=== PATIENT | female | born 1975 | race Two or more races ===

== ENCOUNTER 2016-07-27 12:11 | Inpatient (IN) | payer SELFPAY ==
[~2016-07-27] VITALS: Ht 152.4 cm; Wt 103.0 kg
[2016-07-27] MEDS ORDERED: ALBUTEROL SULF 2.5 MG/0.5ML(0.5%) NEB SOLN HHN STA (13:18)
[2016-07-27] MEDS ORDERED: ACETAMINOPHEN 325 MG TAB PO ONE ×2 (13:20→13:30)
[2016-07-27 13:25] LABS: Basophils # (auto) 0 uL; Basophils % (auto) 0.3 % (0.0-2.0); DEFINITIVE VIEW TRANSMISSION; Eosinophils # (auto) 0 uL; Eosinophils % (auto) 0.1 % (0.0-7.0); Hematocrit 46.5 % (36.0-46.0); Hemoglobin 14.9 g/dL (12.2-16.2); Lymphocytes # (auto) 0.9 uL; Lymphocytes % (auto) 13.7 % (10.0-50.0); Mean Corpuscular Hemoglobin 24.4 pg (28.0-32.0); Mean Corpuscular Volume 76.1 fL (80.0-100.0); Monocytes # (auto) 0.8 uL; Monocytes % (auto) 11.7 % (0.0-12.0); Neutrophils # (auto) 4.8 uL; Neutrophils % (auto) 74.2 % (37.0-80.0); Platelet Count (auto) 293 10^3/uL (140-450); Red Cell Distribution Width 18.5 % (11.6-16.0); White Blood Cell 6.4 10^3/uL (4.4-10.8)
[2016-07-27] MEDS ORDERED: LEVOFLOXACIN 500MG 100 ML IV ONE (13:30)
[2016-07-27] MEDS ORDERED: IPRATROPIUM BROM 0.5 MG/2.5ML INH SOL NEB ONE (13:30)
[2016-07-27] MEDS ORDERED: methylPREDNISolone SOD SUCC 125 MG/2 ML VL IV ONE (13:30)
[2016-07-27 13:50] LABS: Albumin 2.8 g/dL (3.4-5.0); BUN/Creatinine Ratio 13.8; Bilirubin, Total 0.7 mg/dL (0.2-1.0); Calcium 8.2 mg/dL (8.5-10.1); Total Protein 8.1 g/dL (6.4-8.2)
[2016-07-27 13:59] LABS: Potassium 2.8 mmol/L (3.5-5.1)
[2016-07-27 14:04] LABS: Magnesium 2.2 mg/dL (1.6-2.6)
[2016-07-27] MEDS ORDERED: LACTULOSE 20Gm/30ML SOLN PO PRN (14:15)
[2016-07-27] MEDS ORDERED: ALBUTEROL SULF 2.5 MG/0.5ML(0.5%) NEB SOLN NEB PRN (14:15)
[2016-07-27] MEDS ORDERED: NITROGLYCERIN 0.4 MG SL TAB SL PRN (14:15)
[2016-07-27] MEDS ORDERED: HYDROcodone-ACET 5/325MG TAB PO PRN (14:15)
[2016-07-27] MEDS ORDERED: PROCHLORPERAZINE EDISYLATE 5 MG/ML 2ML VIAL IV PRN (14:15)
[2016-07-27] MEDS ORDERED: LORazepam 0.5 MG TAB PO PRN (14:15)
[2016-07-27] MEDS ORDERED: TEMAZEPAM 15 MG CAP PO PRN (14:15)
[2016-07-27] MEDS ORDERED: MORPHINE SULF INJ 2 MG/ML SYRINGE 1ML IV PRN ×2 (14:15)
[2016-07-27] MEDS ORDERED: ACETAMINOPHEN 500 MG TAB PO PRN (14:15)
[2016-07-27 14:20] LABS: B-Type Natriuretic Peptide 852.12 pg/mL (0-100); Temperature: 22.4 C (20.0-25.0)
[2016-07-27] MEDS ORDERED: FUROSEMIDE 40 MG/4 ML VIAL IV ONE (14:30)
[2016-07-27] MEDS ORDERED: POTASSIUM CHL 20MEQ/100ML 100 ML IV ONE (14:30)
[2016-07-27] MEDS ORDERED: POTASSIUM CHL 20 Meq TABLET PO ONE ×2 (14:30→14:45)
[2016-07-27] MEDS ORDERED: ENOXAPARIN SOD 40 MG/0.4 ML SYRINGE SC ONE (14:32)
[2016-07-27] MEDS ORDERED: AZITHROMYCIN 500MG/D5W 250ML 250 ML IV ONE (14:45)
[2016-07-27] MEDS ORDERED: ASPirin 81 mg TAB PO ONE (14:45)
[2016-07-27] MEDS ORDERED: cefTRIAXone 1GM/50ML D5W 50 ML IV ONE (14:45)
[2016-07-27] MEDS ORDERED: ENALAPRIL MALEATE 2.5 MG TAB PO ONE (14:45)
[2016-07-27] MEDS ORDERED: ENALAPRILAT 1.25 MG/ML-1ML VIAL IV PRN (14:45)
[2016-07-27 17:26] LABS: Urine Bilirubin Negative (Negative); Urine Color Yellow (Yellow); Urine Glucose Normal (Normal); Urine Ketone Negative (Negative); Urine Nitrite Negative (Negative); Urine RBC 286 /hpf (0 - 4); Urine Squamous Epithelial Cell FEW /hpf (<5); Urine Urobilinogen Normal (Negative); Urine pH 6.5 (5.0-8.0)
[2016-07-27 17:28] LABS: Urine Blood 3+ /uL (Negative)
[2016-07-27] MEDS: ALBUTEROL SULF 2.5 MG/0.5ML(0.5%) NEB SOLN NEB SCH (18:26)
[2016-07-27 21:15] VITALS: BP 95/48
[2016-07-27] MEDS: SODIUM CHLOR 0.9% PF (SALINE LOCK) 10ML VIAL IV SCH (21:52)
[2016-07-27] MEDS: CARVEDILOL 3.125 MG TAB PO SCH (21:52)
[2016-07-27] MEDS: ATORVASTATIN 20 MG TAB PO SCH (21:52)
[2016-07-28] MEDS: SODIUM CHLOR 0.9% PF (SALINE LOCK) 10ML VIAL IV SCH ×3 (06:03→22:49)
[2016-07-28] MEDS: ALBUTEROL SULF 2.5 MG/0.5ML(0.5%) NEB SOLN NEB SCH ×4 (06:12→18:00)
[2016-07-28 07:33] LABS: Basophils # (auto) 0 uL; DEFINITIVE VIEW TRANSMISSION; Eosinophils # (auto) 0 uL; Eosinophils % (auto) 0.3 % (0.0-7.0); Hematocrit 46.4 % (36.0-46.0); Hemoglobin 14.8 g/dL (12.2-16.2); Lymphocytes # (auto) 0.7 uL; Lymphocytes % (auto) 7.9 % (10.0-50.0); Mean Corpuscular Hemoglobin 24.5 pg (28.0-32.0); Mean Corpuscular Volume 76.8 fL (80.0-100.0); Mean Platelet Volume 7.9 fL (7.4-10.4); Monocytes # (auto) 0.5 uL; Monocytes % (auto) 5.7 % (0.0-12.0); Neutrophils # (auto) 7.4 uL; Neutrophils % (auto) 86.1 % (37.0-80.0); Platelet Count (auto) 298 10^3/uL (140-450); Red Cell Distribution Width 18.5 % (11.6-16.0); White Blood Cell 8.6 10^3/uL (4.4-10.8)
[2016-07-28 08:18] LABS: Albumin 2.5 g/dL (3.4-5.0); BUN/Creatinine Ratio 22.8; Bilirubin, Total 0.5 mg/dL (0.2-1.0); Calcium 8.2 mg/dL (8.5-10.1); Potassium 3.6 mmol/L (3.5-5.1); Total Protein 7.8 g/dL (6.4-8.2)
[2016-07-28 08:28] LABS: B-Type Natriuretic Peptide 569.64 pg/mL (0-100); Temperature: 22.9 C (20.0-25.0)
[2016-07-28] MEDS ORDERED: ASPirin 81 mg TAB PO SCH (10:00)
[2016-07-28] MEDS: cefTRIAXone 1GM/50ML D5W 50 ML IV SCH (10:19)
[2016-07-28] MEDS: FUROSEMIDE 40 MG/4 ML VIAL IV SCH (10:19)
[2016-07-28] MEDS: CARVEDILOL 3.125 MG TAB PO SCH ×2 (10:19→22:48)
[2016-07-28] MEDS: ASPirin 81 mg TAB PO SCH (10:19)
[2016-07-28] MEDS: POTASSIUM CHL 20 Meq TABLET PO SCH (10:19)
[2016-07-28] MEDS: NITROGLYCERIN 0.2MG/HR TOPICAL PATCH TD SCH (10:20)
[2016-07-28] MEDS: ENOXAPARIN SOD 40 MG/0.4 ML SYRINGE SC SCH (10:20)
[2016-07-28] MEDS: ENALAPRIL MALEATE 2.5 MG TAB PO SCH (10:20)
[2016-07-28] MEDS: AZITHROMYCIN 500MG/D5W 250ML 250 ML IV SCH (10:47)
[2016-07-28] MEDS ORDERED: METOPROLOL TARTRATE 50 MG TAB PO ONE (12:30)
[2016-07-28] MEDS ORDERED: METOPROLOL TARTRATE 1MG/1ML-5ML VIAL IV ONE (14:03)
[2016-07-28] MEDS ORDERED: NITROGLYCERIN 0.4 MG SL TAB SL ONE (14:03)
[2016-07-28] MEDS ORDERED: IOHEXOL 350 MG/ML 100ML IJ ONE ×2 (14:07→14:16)
[2016-07-28 18:32] LABS: Basophils # (auto) 0 uL; DEFINITIVE VIEW TRANSMISSION; Eosinophils # (auto) 0 uL; Hematocrit 46.3 % (36.0-46.0); Hemoglobin 14.7 g/dL (12.2-16.2); Lymphocytes # (auto) 1.2 uL; Lymphocytes % (auto) 6.1 % (10.0-50.0); Mean Corpuscular Hemoglobin 24.6 pg (28.0-32.0); Mean Corpuscular Hgb Conc. 31.7 g/dL (32.0-36.0); Mean Corpuscular Volume 77.5 fL (80.0-100.0); Mean Platelet Volume 8.3 fL (7.4-10.4); Monocytes % (auto) 5.2 % (0.0-12.0); Neutrophils % (auto) 88.7 % (37.0-80.0); Platelet Count (auto) 301 10^3/uL (140-450); Red Cell Distribution Width 18.9 % (11.6-16.0); White Blood Cell 19.2 10^3/uL (4.4-10.8)
[2016-07-28 19:01] LABS: Albumin 2.5 g/dL (3.4-5.0); BUN/Creatinine Ratio 21.8; Potassium 3.7 mmol/L (3.5-5.1)
[2016-07-28 19:18] LABS: Bilirubin, Total 0.4 mg/dL (0.2-1.0); Total Protein 7.2 g/dL (6.4-8.2)
[2016-07-28 20:00] VITALS: BP 160/98
[2016-07-28 21:08] VITALS: BP 160/98
[2016-07-28] MEDS: ATORVASTATIN 20 MG TAB PO SCH (22:48)
[2016-07-29] VITALS: BP 144/81
[2016-07-29] MEDS: ALBUTEROL SULF 2.5 MG/0.5ML(0.5%) NEB SOLN NEB SCH ×5 (01:12→23:50)
[2016-07-29 04:10] VITALS: BP 154/93
[2016-07-29 05:05] LABS: Basophils # (auto) 0 uL; DEFINITIVE VIEW TRANSMISSION; Eosinophils # (auto) 0.1 uL; Eosinophils % (auto) 0.4 % (0.0-7.0); Hematocrit 45.4 % (36.0-46.0); Hemoglobin 14.2 g/dL (12.2-16.2); Lymphocytes # (auto) 1.9 uL; Lymphocytes % (auto) 11.1 % (10.0-50.0); Mean Corpuscular Hemoglobin 24.5 pg (28.0-32.0); Mean Corpuscular Hgb Conc. 31.2 g/dL (32.0-36.0); Mean Corpuscular Volume 78.5 fL (80.0-100.0); Mean Platelet Volume 8.2 fL (7.4-10.4); Monocytes # (auto) 0.8 uL; Monocytes % (auto) 4.5 % (0.0-12.0); Neutrophils # (auto) 14.1 uL; Platelet Count (auto) 329 10^3/uL (140-450); White Blood Cell 16.8 10^3/uL (4.4-10.8)
[2016-07-29 05:30] LABS: BUN/Creatinine Ratio 25.5; Calcium 7.9 mg/dL (8.5-10.1); Magnesium 2.3 mg/dL (1.6-2.6); Potassium 3.3 mmol/L (3.5-5.1)
[2016-07-29] MEDS: SODIUM CHLOR 0.9% PF (SALINE LOCK) 10ML VIAL IV SCH ×3 (06:12→22:17)
[2016-07-29 08:00] VITALS: BP 162/99
[2016-07-29] MEDS: cefTRIAXone 1GM/50ML D5W 50 ML IV SCH (10:02)
[2016-07-29] MEDS: ENOXAPARIN SOD 40 MG/0.4 ML SYRINGE SC SCH (10:02)
[2016-07-29] MEDS: FUROSEMIDE 40 MG/4 ML VIAL IV SCH (10:03)
[2016-07-29] MEDS: POTASSIUM CHL 20 Meq TABLET PO SCH (10:03)
[2016-07-29] MEDS: ASPirin 81 mg TAB PO SCH (10:03)
[2016-07-29] MEDS: CARVEDILOL 3.125 MG TAB PO SCH ×2 (10:04→22:14)
[2016-07-29] MEDS: ENALAPRIL MALEATE 2.5 MG TAB PO SCH (10:04)
[2016-07-29] MEDS: NITROGLYCERIN 0.2MG/HR TOPICAL PATCH TD SCH (10:08)
[2016-07-29] MEDS: AZITHROMYCIN 500MG/D5W 250ML 250 ML IV SCH (11:22)
[2016-07-29 12:00] VITALS: BP 144/49
[2016-07-29 16:00] VITALS: BP 146/91
[2016-07-29] MEDS ORDERED: POTASSIUM CHL 20 Meq TABLET PO ONE (16:00)
[2016-07-29] MEDS ORDERED: VANCOMYCIN PER PHARMACY 0 MG IV SCH (16:00)
[2016-07-29] MEDS ORDERED: DEXTROSE (50%) 50ML SYRG IV ONE (16:00)
[2016-07-29] MEDS ORDERED: DEXTROSE (50%) 50ML SYRG IV PRN (16:00)
[2016-07-29] MEDS: InsuLIN REG 1unit/0.01ml Soln (100units/ml) SC SCH ×2 (17:00→22:00)
[2016-07-29] MEDS: ACCU-CHEK COMFORT CURVE STRIP VI SCH ×2 (17:17→22:00)
[2016-07-29] MEDS: VANCOMYCIN 1GM/250ML D5W 250 ML IV SCH (17:19)
[2016-07-29] MEDS: PIPERACILLIN-TAZOB 3.375GM 100 ML IV SCH (18:26)
[2016-07-29] MEDS: IPRATROPIUM BROM 0.5 MG/2.5ML INH SOL NEB SCH ×2 (18:47→23:50)
[2016-07-29 20:00] VITALS: BP 147/71
[2016-07-29] MEDS: ATORVASTATIN 20 MG TAB PO SCH (22:13)
[2016-07-29] MEDS: ACETYLCYSTEINE 20%(200MG/ML) SOL 4ML NEB SCH (23:50)
[2016-07-30] VITALS: BP 148/82
[2016-07-30] MEDS: VANCOMYCIN 1GM/250ML D5W 250 ML IV SCH ×2 (00:44→09:05)
[2016-07-30] MEDS: PIPERACILLIN-TAZOB 3.375GM 100 ML IV SCH ×3 (00:45→18:10)
[2016-07-30 04:00] VITALS: BP 158/85
[2016-07-30 05:14] LABS: Basophils # (auto) 0 uL; Basophils % (auto) 0.4 % (0.0-2.0); DEFINITIVE VIEW TRANSMISSION; Eosinophils # (auto) 0.5 uL; Eosinophils % (auto) 4.3 % (0.0-7.0); Hematocrit 44.6 % (36.0-46.0); Hemoglobin 13.8 g/dL (12.2-16.2); Lymphocytes # (auto) 1.5 uL; Lymphocytes % (auto) 13.4 % (10.0-50.0); Mean Corpuscular Hemoglobin 24.4 pg (28.0-32.0); Mean Corpuscular Hgb Conc. 30.9 g/dL (32.0-36.0); Mean Corpuscular Volume 78.8 fL (80.0-100.0); Mean Platelet Volume 8.3 fL (7.4-10.4); Monocytes # (auto) 0.8 uL; Monocytes % (auto) 7.1 % (0.0-12.0); Neutrophils # (auto) 8.5 uL; Neutrophils % (auto) 74.8 % (37.0-80.0); Platelet Count (auto) 301 10^3/uL (140-450); Red Cell Distribution Width 19.4 % (11.6-16.0); White Blood Cell 11.4 10^3/uL (4.4-10.8)
[2016-07-30 05:31] LABS: Potassium 3.9 mmol/L (3.5-5.1)
[2016-07-30] MEDS: SODIUM CHLOR 0.9% PF (SALINE LOCK) 10ML VIAL IV SCH ×3 (06:05→22:06)
[2016-07-30] MEDS: InsuLIN REG 1unit/0.01ml Soln (100units/ml) SC SCH ×4 (06:05→22:00)
[2016-07-30] MEDS: ACCU-CHEK COMFORT CURVE STRIP VI SCH ×4 (06:24→22:00)
[2016-07-30] MEDS: ALBUTEROL SULF 2.5 MG/0.5ML(0.5%) NEB SOLN NEB SCH ×3 (06:41→18:15)
[2016-07-30] MEDS: IPRATROPIUM BROM 0.5 MG/2.5ML INH SOL NEB SCH ×3 (06:41→18:15)
[2016-07-30] MEDS: ACETYLCYSTEINE 20%(200MG/ML) SOL 4ML NEB SCH ×3 (06:41→18:15)
[2016-07-30 08:00] VITALS: BP 142/82
[2016-07-30] MEDS: POTASSIUM CHL 20 Meq TABLET PO SCH (09:06)
[2016-07-30] MEDS: ASPirin 81 mg TAB PO SCH (09:06)
[2016-07-30] MEDS: ENOXAPARIN SOD 40 MG/0.4 ML SYRINGE SC SCH (09:06)
[2016-07-30] MEDS: NITROGLYCERIN 0.2MG/HR TOPICAL PATCH TD SCH (09:11)
[2016-07-30] MEDS: CARVEDILOL 3.125 MG TAB PO SCH ×2 (09:12→22:06)
[2016-07-30] MEDS: FUROSEMIDE 40 MG/4 ML VIAL IV SCH (09:12)
[2016-07-30] MEDS: ENALAPRIL MALEATE 2.5 MG TAB PO SCH (09:12)
[2016-07-30 12:00] VITALS: BP 159/83
[2016-07-30 17:00] VITALS: BP 139/83
[2016-07-30] MEDS: ATORVASTATIN 20 MG TAB PO SCH (22:06)
[2016-07-30 22:28] VITALS: BP 152/87
[2016-07-31] MEDS: PIPERACILLIN-TAZOB 3.375GM 100 ML IV SCH ×3 (00:07→12:23)
[2016-07-31] MEDS: IPRATROPIUM BROM 0.5 MG/2.5ML INH SOL NEB SCH ×3 (00:11→13:29)
[2016-07-31] MEDS: ALBUTEROL SULF 2.5 MG/0.5ML(0.5%) NEB SOLN NEB SCH ×3 (00:11→13:30)
[2016-07-31] MEDS: SODIUM CHLOR 0.9% PF (SALINE LOCK) 10ML VIAL IV SCH ×2 (05:32→13:58)
[2016-07-31 05:39] VITALS: BP 168/91
[2016-07-31 06:25] LABS: Basophils # (auto) 0 uL; Basophils % (auto) 0.4 % (0.0-2.0); DEFINITIVE VIEW TRANSMISSION; Eosinophils # (auto) 0.8 uL; Eosinophils % (auto) 9.4 % (0.0-7.0); Hematocrit 44.3 % (36.0-46.0); Hemoglobin 14.2 g/dL (12.2-16.2); Lymphocytes # (auto) 1.2 uL; Mean Corpuscular Hemoglobin 24.5 pg (28.0-32.0); Mean Corpuscular Volume 76.5 fL (80.0-100.0); Mean Platelet Volume 7.9 fL (7.4-10.4); Monocytes # (auto) 0.8 uL; Monocytes % (auto) 8.5 % (0.0-12.0); Neutrophils # (auto) 6.1 uL; Neutrophils % (auto) 68.7 % (37.0-80.0); Platelet Count (auto) 309 10^3/uL (140-450); White Blood Cell 8.9 10^3/uL (4.4-10.8)
[2016-07-31] MEDS: ACCU-CHEK COMFORT CURVE STRIP VI SCH ×3 (06:31→17:00)
[2016-07-31] MEDS: InsuLIN REG 1unit/0.01ml Soln (100units/ml) SC SCH ×3 (06:31→17:00)
[2016-07-31 06:40] LABS: Albumin 2.4 g/dL (3.4-5.0); BUN/Creatinine Ratio 23.8; Bilirubin, Total 0.6 mg/dL (0.2-1.0); Calcium 8.2 mg/dL (8.5-10.1); Potassium 3.5 mmol/L (3.5-5.1); Total Protein 7.1 g/dL (6.4-8.2)
[2016-07-31] MEDS: ACETYLCYSTEINE 20%(200MG/ML) SOL 4ML NEB SCH ×2 (07:35→13:30)
[2016-07-31 07:57] VITALS: BP 166/98
[2016-07-31] MEDS: ASPirin 81 mg TAB PO SCH (09:33)
[2016-07-31] MEDS: POTASSIUM CHL 20 Meq TABLET PO SCH (09:33)
[2016-07-31] MEDS: CARVEDILOL 3.125 MG TAB PO SCH (09:34)
[2016-07-31] MEDS: ENALAPRIL MALEATE 2.5 MG TAB PO SCH (09:34)
[2016-07-31] MEDS: ENOXAPARIN SOD 40 MG/0.4 ML SYRINGE SC SCH (09:35)
[2016-07-31] MEDS: FUROSEMIDE 40 MG/4 ML VIAL IV SCH (09:36)
[2016-07-31] MEDS: NITROGLYCERIN 0.2MG/HR TOPICAL PATCH TD SCH (11:16)
[2016-07-31 12:46] VITALS: BP 141/81
[2016-07-31] MEDS ORDERED: FURO40TA PO (15:37)
[2016-07-31] MEDS ORDERED: LEVO750T3 PO (15:37)
[2016-07-31] MEDS ORDERED: POTA20TA53 PO (15:37)
[2016-07-31] MEDS ORDERED: LISI-646 PO (15:37)
[2016-07-31] MEDS ORDERED: METF-312 PO (15:39)
[2016-07-31 16:14] VITALS: BP 166/98
== END 2016-07-31 17:20 | disposition home or self-care (01) | DRG 871 ==
LOC: ER 12:11 → TELE 12:12 → DOU IN ICU 07-28 20:01 → WEST WING 07-30 13:00 → TELE-WESTW 07-30 23:00
PROVIDERS: ADMIT Internal Medicine; ATTEND Internal Medicine
DX: A41.9 Sepsis, unspecified organism (principal); I21.4 Non-ST elevation (NSTEMI) myocardial infarction; I50.41 Acute combined systolic (congestive) and diastolic (congestive) heart failure; J18.9 Pneumonia, unspecified organism; I11.0 Hypertensive heart disease with heart failure; E44.0 Moderate protein-calorie malnutrition; N17.9 Acute kidney failure, unspecified; E87.6 Hypokalemia; Z82.49 Family history of ischemic heart disease and other diseases of the circulatory system; Z83.3 Family history of diabetes mellitus; Z86.32 Personal history of gestational diabetes; E66.01 Morbid (severe) obesity due to excess calories; Z98.51 Tubal ligation status; E03.9 Hypothyroidism, unspecified; E11.9 Type 2 diabetes mellitus without complications; E78.5 Hyperlipidemia, unspecified
CPT/HCPCS: 36415; 71010; 71020; 71275; 75571; 75574; 80048; 80053; 80061; 80202; 81001; 82550; 82962; 83036; 83605; 83735; 83880; 84443; 84484; 85025; 85379; 85652; 86141; 87040; 87081; 87400; 93005; 93306; 94640; 94644; 94667; 94668; 94761; 96365; 96372; 96375; G0434; J0696; J1956; J2543

== ENCOUNTER → 2017-01-25 | Outpatient (CLI) | payer BC ==
[~2017-01-25] VITALS: Ht 152.4 cm; Wt 109.3 kg
[~2017-01-25] MED LIST: FURO40TA PO; LEVO750T2 PO; LISI-646 PO; METF-370 PO; POTA20TA53 PO
== END | disposition home or self-care (01) ==
LOC: Rad HDHVI 09:24
PROVIDERS: ATTEND Internal Medicine Cardiovascular Disease
DX: I11.0 Hypertensive heart disease with heart failure (principal); I50.23 Acute on chronic systolic (congestive) heart failure; E11.9 Type 2 diabetes mellitus without complications; Z79.84 Long term (current) use of oral hypoglycemic drugs
CPT/HCPCS: 78452; 93017; 93306; 96374; A9500

== ENCOUNTER 2017-02-05 10:49 | Emergency (ER) | payer BC ==
[~2017-02-05] VITALS: Ht 154.9 cm; Wt 109.3 kg
[2017-02-05 11:59] LABS: Basophils # (auto) 0.1 uL; Basophils % (auto) 0.8 % (0.0-2.0); Eosinophils # (auto) 0.4 uL; Hematocrit 41.7 % (36.0-46.0); Hemoglobin 14.5 g/dL (12.2-16.2); Lymphocytes # (auto) 1.2 uL; Lymphocytes % (auto) 13.8 % (10.0-50.0); Mean Corpuscular Hgb Conc. 34.7 g/dL (32.0-36.0); Mean Corpuscular Volume 89.6 fL (80.0-100.0); Mean Platelet Volume 6.9 fL (6.9-10.8); Monocytes # (auto) 0.8 uL; Monocytes % (auto) 8.4 % (0.0-12.0); Neutrophils # (auto) 6.5 uL; Platelet Count (auto) 321 10^3/uL (140-450); Red Cell Distribution Width 12.7 % (11.8-14.3)
[2017-02-05 12:26] LABS: Albumin 3.6 g/dL (3.4-5.0); BUN/Creatinine Ratio 20.7; Bilirubin, Total 0.3 mg/dL (0.2-1.0); Calcium 9.3 mg/dL (8.5-10.1); Potassium 3.7 mmol/L (3.5-5.1); Total Protein 8.6 g/dL (6.4-8.2)
[2017-02-05 18:24] LABS: B-Type Natriuretic Peptide 23.53 pg/mL (0-100)
[2017-02-05 18:39] LABS: Temperature: 24.3 C (20.0-25.0)
[2017-02-05 19:40] VITALS: BP 139/76
[2017-02-05 20:10] LABS: Urine RBC None Seen /hpf (0 - 4)
[2017-02-05 20:26] LABS: Urine Bilirubin Negative (Negative); Urine Blood Negative /uL (Negative); Urine Color Yellow (Yellow); Urine Glucose Normal (Normal); Urine Ketone Negative (Negative); Urine Nitrite Negative (Negative); Urine Squamous Epithelial Cell FEW /hpf (<5); Urine Urobilinogen Normal (Negative)
== END 2017-02-05 21:08 | disposition home or self-care (01) ==
LOC: ER 10:49
DX: R07.9 Chest pain, unspecified (principal); I11.0 Hypertensive heart disease with heart failure; I50.9 Heart failure, unspecified; E07.9 Disorder of thyroid, unspecified; Z98.51 Tubal ligation status; Z79.899 Other long term (current) drug therapy
CPT/HCPCS: 36415; 71020; 80053; 81001; 83735; 83880; 84484; 84702; 85025; 85379; 93005